=== PATIENT | male | born 1975 | race Hispanic/Latino ===

== ENCOUNTER 2019-09-19 11:28 | Day surgery (SDC) | payer BC ==
[2019-09-16 16:22] LABS: BASOPHILS % (AUTO) 0.3 % (0.0-5.0); EOSINOPHILS % (AUTO) 0.2 % (0.0-8.0); HEMATOCRIT 45.2 % (42-54); LYMPHOCYTES % (AUTO) 36.8 % (21.0-51.0); MEAN CORPUSCULAR HEMOGLOBIN 29.7 pg (27.0-33.0); MEAN CORPUSCULAR HGB CONC 32.1 g/dL (32.0-36.0); MEAN CORPUSCULAR VOLUME 92.4 fL (79-99); MONOCYTES % (AUTO) 8.9 % (3.0-13.0); NEUTROPHILS % (AUTO) 53.3 % (40.0-77.0); PLATELET COUNT (AUTO) 252 K/uL (130-400); RED BLOOD CELL COUNT(AUTO) 4.89 MIL/uL (4.50-6.20); RED CELL DISTRIBUTION WIDTH 13.1 % (11.0-15.5); WHITE BLOOD COUNT (AUTO) 6.6 K/uL (4.8-10.8)
[2019-09-16 16:32] LABS: CREATININE 0.9 mg/dL (0.5-1.5); POTASSIUM 4.5 mmol/L (3.5-5.1)
[2019-09-16 17:13] VITALS: BP 118/71
[2019-09-16 17:13] LABS: APPEARANCE,URINE Clear (CLEAR); BILIRUBIN,URINE Negative (NEGATIVE); COLOR,URINE Yellow (YELLOW); GLUCOSE, URINE (UA) Negative (NEGATIVE); KETONES,URINE Negative (NEGATIVE); LEUKOCYTE ESTERASE ,URINE Negative (NEGATIVE); NITRATE,URINE Negative (NEGATIVE); OCCULT BLOOD,URINE Moderate (NEGATIVE); PH,URINE 6.5 (5.0-8.0); PROTEIN,URINE Negative (NEGATIVE); UROBILINOGEN,URINE 0.2 mg/dL (0.2-1.0)
[2019-09-16 17:52] LABS: BACTERIA,URINE Few /HPF (None Seen); RBC,URINE 26-50 /HPF (0-1); SQUAMOUS EPITHELIAL CELL,UR 0-2 /HPF (0-2)
--- NOTE | 2019-09-18 15:30 | NUR ---
ABNORMAL EKG reviewed by frank Cazares CRNA to proceed with procedure Addendum: 09/18/19 at 1600 by ANDI BONILLA RN RN Amended: Links added.
[~2019-09-19] VITALS: Ht 167.6 cm; Wt 76.7 kg
[2019-09-19] VITALS (14 sets, daily range): BP systolic 108–129; BP diastolic 60–78
[~2019-09-19 11:28] MED LIST: CEFTRIAXONE SODIUM 1 GM IVP SCH; GENTAMICIN 80 MG/NS 100 ML PB 100 ML IV SCH
[2019-09-19] MEDS ORDERED: GENTAMICIN 80 MG/NS 100 ML PB 100 ML IV ONE (13:25)
[2019-09-19] MEDS ORDERED: LACTATED RINGERS 1000ML 1,000 ML IV ONE (13:25)
--- NOTE | 2019-09-19 13:45 | NUR ---
CONSULT: FARZANA TAYLOR CRNA NOTIFIED OF PATIENTS NPO STATUS: 09/19/19 AT 0400 GLASS OF WATER. NO ORDERS GIVEN. OK TO PROCEED WITH SURGERY.
[2019-09-19] MEDS: CEFTRIAXONE SODIUM 1 GM ONE ×2 (13:55→15:40)
[2019-09-19] MEDS ORDERED: LIDOCAINE PF 2% 5ML ABBOJECT ONE (15:27)
[2019-09-19] MEDS ORDERED: FENTANYL CITRATE PF 50 MCG/1 ML 5ML AMP IV ONE (15:27)
[2019-09-19] MEDS ORDERED: PROPOFOL 10 MG/ML 20ML VIAL IV ONE (15:27)
[2019-09-19] MEDS ORDERED: IOHEXOL-350 50ML VIAL IV ONE (15:37)
[2019-09-19] MEDS ORDERED: SODIUM CHLORIDE 0.9% 10 ML VIAL ONE (15:42)
[2019-09-19] MEDS ORDERED: PHENYLEPHRINE HCL 10 MG/ML 1ML VIAL IV ONE (15:42)
[2019-09-19] MEDS ORDERED: GLYCOPYRROLATE 1 MG/5 ML SYRINGE ONE (15:51)
[2019-09-19] MEDS ORDERED: FENTANYL CITRATE PF 50 MCG/1 ML 2ML VIAL ONE (17:07)
--- NOTE | 2019-09-19 17:45 | NUR ---
ASSESSMENT RECEIVED PT FROM PACU STAFF WENDY PANDEY. PT AAOX3. DENIES ANY PAIN. AT BEDSIDE.
--- NOTE | 2019-09-19 18:00 | NUR ---
DISCHARGE ORAL AND WRITTEN DISCHARGE INSTRUCTIONS GIVEN TO PT AND PTS ALONG WITH PRESCRIPTION. NO OTHER QUESTIONS AT THIS TIME. PT WILL CALL DR. HURT OFFICE TOMORROW TO SCHEDULE POST OP APPT.
== END 2019-09-19 18:14 | disposition home or self-care (01) ==
LOC: DAH 11:28
PROVIDERS: ATTEND Urology
DX: N20.1 Calculus of ureter (principal); Z79.899 Other long term (current) drug therapy; Z98.890 Other specified postprocedural states
CPT/HCPCS: 36415 ×2; 52356; 74018; 80048; 81001; 82360; 85025; 87088; 93005; 96365; A4213; A4215; A4221; A4222; A4223 ×2; A4354; A4600; A4663; A6207; A6260; C1758; C1769 ×2; C2617; J0696; J1580; J2001; J2370; J2704; J3010 ×2; J3490; J7030 ×2; J7120; 77002; Q9967